=== PATIENT | female | born 1990 | race American Indian/Alaskan Native ===

== ENCOUNTER 2017-11-13 08:40 | Emergency (ER) | payer OTHER ==
[2017-11-13 08:50] VITALS: BP 125/78
--- NOTE | 2017-11-13 09:49 | Emergency Department Report ---
Blank Doc - Documentation Documentation: Patient is 27-year-old black female who is who is having some right knee pain. Patient states it has been hurting for last several days is been no injury or trauma. Patient believes she may have a blood clot in her leg. Brief physical exam patient has a minimal effusion does have some medial knee and distal thigh pain on palpation. Ultrasound be done.
--- NOTE | 2017-11-13 10:43 | Emergency Department Report ---
ED Lower Extremity HPI - General Chief Complaint: Extremity Injury, Lower Stated Complaint: KNEE PAIN/SWELLING Time Seen by Provider: 11/13/17 09:45 Source: patient Mode of arrival: Ambulatory Limitations: No Limitations - History of Present Illness Initial Comments: This is a 27-year-old -Russian female who presents with right knee pain for 3 days. Patient is , she believe to be 26 weeks gestation. A3. Patient states she has taken Tylenol with no improvement of symptoms. Pain is worse with laying and sitting up. Patient currently reports pain is 8 out of 10 on pain scale and sharp in intensity. Patient states that he feels like someone is squeezing her knee. Pain usually last about 10 minutes. She is currently waiting appointment with [facility]. Patient states last appointment was in [place] prior to moving here. Patient denies swelling, erythema, numbness or tingling, recent injury, fever, and warm to touch. MD Complaint: knee injury (right eye) Onset/Timin -: days(s) Injury: Knee: Right Type of Injury: unknown Place: home Severity: moderate Severity scale (0 -10): 8 Improves With: nothing Worsens With: movement Associated Symptoms: ambulatory - Related Data Allergies Allergy/AdvReac Type Severity Reaction Status Date / Time No Known Allergies Allergy Verified 11/13/17 08:47 ED Review of Systems ROS: Stated complaint: KNEE PAIN/SWELLING Other details as noted in HPI Constitutional: denies: chills, fever Respiratory: denies: cough, shortness of breath, wheezing Cardiovascular: denies: chest pain, palpitations Gastrointestinal: denies: abdominal pain, nausea, diarrhea Musculoskeletal: arthralgia (right knee pain). denies: back pain, joint swelling Skin: denies: rash, lesions Neurological: denies: headache, weakness, paresthesias Psychiatric: denies: anxiety, depression ED Past Medical Hx - Past Medical History Previous Medical History?: Yes Additional medical history: PCOS - Surgical History Past Surgical History?: Yes Additional Surgical History: skin graft. D&C - Social History Smoking Status: Never Smoker Substance Use Type: None ED Physical Exam - General Limitations: No Limitations General appearance: alert, in no apparent distress - Respiratory Respiratory exam: Present: normal lung sounds bilaterally. Absent: respiratory distress - Cardiovascular Cardiovascular Exam: Present: regular rate, normal rhythm. Absent: systolic murmur, diastolic murmur, rubs, gallop - GI/Abdominal GI/Abdominal exam: Present: soft, normal bowel sounds - Extremities Exam Extremities exam: Present: full ROM, normal capillary refill. Absent: pedal edema, joint swelling, calf tenderness - Expanded Lower Extremity Exam Right Hip exam: Present: normal inspection, full ROM Upper Leg exam: Present: normal inspection, full ROM Knee exam: Present: full ROM, tenderness (tenderness on palpation of medial knee ), pain w/ pronation/supination, full knee extension. Absent: swelling, abrasion, laceration, ecchymosis, deformity, crepidus, dislocation, erythema, effusion, posterior draw sign, pain/laxity with valgus, pain/laxity with varus Lower Leg exam: Present: normal inspection, full ROM Ankle exam: Present: normal inspection, full ROM Foot/Toe exam: Present: normal inspection, full ROM Neuro vascular tendon exam: Present: no vascular compromise Gait: Positive: observed and normal - Neurological Exam Neurological exam: Present: alert, oriented X3 - Psychiatric Psychiatric exam: Present: normal affect, normal mood - Skin Skin exam: Present: warm, dry, intact, normal color. Absent: rash ED Course Vital Signs 11/13/17 08:47 Temperature 98.3 F Pulse Rate 99 H Respiratory 20 Rate Blood Pressure 125/78 O2 Sat by Pulse 100 Oximetry ED Lower Extremity MDM - Radiology Data Radiology results: report reviewed VASCULAR LAB.PRELIMINARY REPORT. RLE VENOUS DUPLEX DONE. NO EVIDENCE OF DVT/SVT IN VESSELS VISUALIZED. - Medical Decision Making Patient was examined by me and screened by Dr. Trinidad in fast track. Vitals are normal and patient is in no acute distress. Obtained a duplex Doppler of right lower extremity with no signs of SVT or DVT. Patient informed of results. Patient instructed to take Tylenol for pain. Plan discussed with patient to discharge home and treat outpatient. Patient discharged home in stable condition. Follow up with PCP and [facility] in 2-3 days. Critical care attestation.: If time is entered above; I have spent that time in minutes in the direct care of this critically ill patient, excluding procedure time. ED Disposition Clinical Impression: Muscle strain of right knee Qualifiers: Encounter type: initial encounter Qualified Code(s): S86.911A - Strain of unspecified muscle(s) and tendon(s) at lower leg level, right leg, initial encounter Right knee pain Qualifiers: Chronicity: acute Qualified Code(s): M25.561 - Pain in right knee Disposition: - TO HOME OR SELFCARE Is pt being admited?: No Does the pt Need Aspirin: No Condition: Stable Instructions: Muscle Strain (ED), Arthralgia (ED) Additional Instructions: Rest Use ice or heat on affected area for 20 minutes and off for 2 hours. Take Tylenol every 6 hours as needed for pain. Follow up with Primary Care Provider or [facility] in 2-3 days. Referrals: [facility] [Provider Group] - 3-5 Days [facility] [Provider Group] - 3-5 Days [facility] [Outside] - 3-5 Days Time of Disposition: 10:55 Print Language: KYRGYZ
== END 2017-11-13 11:00 | disposition home or self-care (01) ==
LOC: ED 08:40
DX: O26.892 Other specified pregnancy related conditions, second trimester (principal); S86.911A Strain of unspecified muscle(s) and tendon(s) at lower leg level, right leg, initial encounter; E28.2 Polycystic ovarian syndrome; Z3A.26 26 weeks gestation of pregnancy; X58.XXXA Exposure to other specified factors, initial encounter; Y93.89 Activity, other specified; Y92.89 Other specified places as the place of occurrence of the external cause; Y99.8 Other external cause status
CPT/HCPCS: 99283

== ENCOUNTER 2019-01-12 19:35 | Emergency (ER) | payer SELFPAY ==
[2019-01-12 20:30] VITALS: BP 143/89
[2019-01-12] MEDS ORDERED: IBUPROFEN PO ONE ×2 (20:33→20:35)
--- NOTE | 2019-01-12 21:01 | Emergency Department Report ---
ED ENT HPI - General Chief complaint: Earache Stated complaint: RT EAR PAIN Time Seen by Provider: 01/12/19 20:27 Source: patient Mode of arrival: Ambulatory Limitations: No Limitations - History of Present Illness Initial comments: This is a 28-year-old female that presents to the ER with complaint of right earache for 2 days. Patient denies any hearing loss, mastoid tenderness, fever, chills, headache, nausea, vomiting, chest pain or SOB. Denies any other complaints. MD complaint: ear pain (right) Onset/Timin -: days(s) Location: R ear Severity: severe Severity scale (0 -10): 10 Quality: aching Consistency: constant Improves with: none Worsens with: none Associated Symptoms: toothache. denies: fever, cough, pain with swallowing, sore throat, tinnitus, hearing loss, discharge from ear - Related Data Previous Rx's Medication Instructions Recorded Last Taken Type Nitrofurantoin Monohyd/M-Cryst 100 mg PO BID 10 Days #20 capsule 02/01/18 Unknown Rx [Macrobid 100 mg Capsule] Ibuprofen [Motrin 600 MG tab] 600 mg PO Q8H PRN #20 tablet 01/12/19 Unknown Rx Neomy/Polymyx B/Hc Otic Susp 4 drops AD TID #1 bottle 01/12/19 Unknown Rx [Cortisporin (Otic) Susp] traMADol [Ultram 50 MG tab] 50 mg PO Q6HR PRN #12 tablet 01/12/19 Unknown Rx Allergies Allergy/AdvReac Type Severity Reaction Status Date / Time No Known Allergies Allergy Verified 11/13/17 08:47 ED Dental HPI - General Chief complaint: Earache Stated complaint: RT EAR PAIN Time Seen by Provider: 01/12/19 20:27 Source: patient Mode of arrival: Ambulatory Limitations: No Limitations - Related Data Previous Rx's Medication Instructions Recorded Last Taken Type Nitrofurantoin Monohyd/M-Cryst 100 mg PO BID 10 Days #20 capsule 02/01/18 Unknown Rx [Macrobid 100 mg Capsule] Ibuprofen [Motrin 600 MG tab] 600 mg PO Q8H PRN #20 tablet 01/12/19 Unknown Rx Neomy/Polymyx B/Hc Otic Susp 4 drops AD TID #1 bottle 01/12/19 Unknown Rx [Cortisporin (Otic) Susp] traMADol [Ultram 50 MG tab] 50 mg PO Q6HR PRN #12 tablet 01/12/19 Unknown Rx Allergies Allergy/AdvReac Type Severity Reaction Status Date / Time No Known Allergies Allergy Verified 11/13/17 08:47 ED Review of Systems ROS: Stated complaint: RT EAR PAIN Other details as noted in HPI Constitutional: denies: chills, fever ENT: ear pain (right). denies: throat pain Respiratory: denies: cough, shortness of breath, wheezing Cardiovascular: denies: chest pain, palpitations Gastrointestinal: denies: abdominal pain, nausea, diarrhea Skin: denies: rash, lesions Neurological: denies: headache, weakness, paresthesias Psychiatric: denies: anxiety, depression ED Past Medical Hx - Past Medical History Previous Medical History?: No Additional medical history: PCOS, Vaginal delivery - Surgical History Past Surgical History?: No Additional Surgical History: skin graft. D&C - Social History Smoking Status: Never Smoker Substance Use Type: None - Medications Home Medications: Home Medications Medication Instructions Recorded Confirmed Last Taken Type Nitrofurantoin Monohyd/M-Cryst 100 mg PO BID 10 Days #20 capsule 02/01/18 Unknown Rx [Macrobid 100 mg Capsule] Ibuprofen [Motrin 600 MG tab] 600 mg PO Q8H PRN #20 tablet 01/12/19 Unknown Rx Neomy/Polymyx B/Hc Otic Susp 4 drops AD TID #1 bottle 01/12/19 Unknown Rx [Cortisporin (Otic) Susp] traMADol [Ultram 50 MG tab] 50 mg PO Q6HR PRN #12 tablet 01/12/19 Unknown Rx ED Physical Exam - General Limitations: No Limitations General appearance: alert, in no apparent distress, obese - ENT ENT exam: Present: mucous membranes moist. Absent: TM's normal bilaterally, normal external ear exam (erythematous external right ear canal, tragus ten derness, no otorrhea) - Respiratory Respiratory exam: Present: normal lung sounds bilaterally. Absent: respiratory distress - Cardiovascular Cardiovascular Exam: Present: regular rate, normal rhythm. Absent: systolic murmur, diastolic murmur, rubs, gallop - Neurological Exam Neurological exam: Present: alert, oriented X3 - Psychiatric Psychiatric exam: Present: normal affect, normal mood - Skin Skin exam: Present: warm, dry, intact, normal color. Absent: rash ED Course Vital Signs 01/12/19 20:27 Temperature 98.2 F Pulse Rate 64 Respiratory 14 Rate Blood Pressure 143/89 O2 Sat by Pulse 99 Oximetry ED Medical Decision Making - Medical Decision Making A/P Otitis externa of right ear 1- Start cortisporin, ibuprofen, and tramadol. 2- F/U with PCP if lack of improvement after 48h of antibiotics. 3- At time time of discharge, the patient does not seem toxic or ill in appearance. No acute signs of distress noted. Critical care attestation.: If time is entered above; I have spent that time in minutes in the direct care of this critically ill patient, excluding procedure time. ED Disposition Clinical Impression: Otalgia of right ear Otitis externa Qualifiers: Otitis externa type: diffuse Chronicity: acute Laterality: right Qualified Code(s): H60.311 - Diffuse otitis externa, right ear Disposition: TO HOME OR SELFCARE Is pt being admited?: No Condition: Stable Instructions: Otitis Externa (ED) Additional Instructions: Symptoms should improve in 24-48h of antibiotics. Follow-up with a primary care doctor in 3-5 days or if symptoms worsen and continue return to the emergency department as soon as possible. Prescriptions: Neomy/Polymyx B/Hc Otic Susp [Cortisporin (Otic) Susp] 4 drops AD TID #1 bottle Ibuprofen [Motrin 600 MG tab] 600 mg PO Q8H PRN #20 tablet PRN Reason: Pain traMADol [Ultram 50 MG tab] 50 mg PO Q6HR PRN #12 tablet PRN Reason: Pain Referrals: [facility] [Outside] - 3-5 Days [facility] [Outside] - 3-5 Days [facility] [Outside] - 3-5 Days Forms: Work/School Release Form(ED) Time of Disposition: 21:22
== END 2019-01-12 21:35 | disposition home or self-care (01) ==
LOC: ED 19:35
DX: H60.311 Diffuse otitis externa, right ear (principal); Z79.899 Other long term (current) drug therapy
CPT/HCPCS: 99282

== ENCOUNTER 2020-10-31 11:23 | Emergency (ER) | payer OTHER ==
[2020-10-31 12:24] VITALS: BP 145/77
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
[2020-10-31 13:00] LABS: Basophils % (Auto) 0.1 % (0.0-1.8); Hematocrit 39.9 % (30.3-42.9); Hemoglobin 14.1 gm/dl (10.1-14.3); Lymphocytes % (Auto) 17.7 % (13.4-35.0); Mean Corpuscular HGB Conc 35 % (30-34); Mean Corpuscular Volume 98 fl (79-97); Monocytes # (Auto) 0.3 K/mm3 (0.0-0.8); Monocytes % (Auto) 5.9 % (0.0-7.3); Platelet Count 203 K/mm3 (140-440); Red Blood Count 4.07 M/mm3 (3.65-5.03); Red Cell Distribution Width 12.1 % (13.2-15.2)
[2020-10-31 13:24] LABS: Alanine Aminotransferase 18 units/L (7-56); Albumin 3.9 g/dL (3.9-5); BUN/Creatinine Ratio 17; Blood Urea Nitrogen 12 mg/dL (7-17); Calcium 9.3 mg/dL (8.4-10.2); Hemolysis Index 9
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
== END 2020-10-31 18:24 | disposition home or self-care (01) ==
LOC: ED 11:23
DX: S43.401A Unspecified sprain of right shoulder joint, initial encounter (principal); S83.91XA Sprain of unspecified site of right knee, initial encounter; M62.830 Muscle spasm of back; V49.49XA Driver injured in collision with other motor vehicles in traffic accident, initial encounter; Y93.89 Activity, other specified; Y92.89 Other specified places as the place of occurrence of the external cause; Y99.8 Other external cause status
CPT/HCPCS: 36415; 72100; 80053; 83690; 84703; 85025; 99283